=== PATIENT | male | born 1980 | race Caucasian/White ===

== ENCOUNTER 2017-05-31 13:59 | Emergency (ER) | payer OTHER ==
[~2017-05-31] VITALS: Ht 162.6 cm; Wt 58.1 kg
[~2017-05-31 13:59] MED LIST: AMOX1TAB12 PO; BUCALSEP SPRAY30 ML MM; CIPRO500 MG PO; CLARITIN10 MG PO; CORTISPORIN EAR10 M1 OT; DUI500 PO; DURICEF 500 MG PO; FLONASE16 GM NS; FLOVENT DI50 MCG/DIS; MOTRIN800 MG PO; MUPIROCIN22 GM TOP; NASONEX17 GM NS; NO DOZ200 MG; PROVENTIL HFA6.7 GM IH; TESSALON PERLE100 MG PO; TOBREX5 ML OP; ZITHROMAX TRI-500 MG PO; ZOVIRAX400 M1 PO; ZYNCOF 20-400120 ML PO; ZYRTEC10 M3; ZYRTEC10 MG PO; [UNRECOGNIZED DRUG - OTHER] OTIC
== END 2017-05-31 16:15 | disposition home or self-care (01) ==
LOC: ER 13:59
DX: J06.9 Acute upper respiratory infection, unspecified (principal)

== ENCOUNTER → 2017-09-10 | Outpatient (CLI) | payer OTHER | END | disposition home or self-care (01) | LOC: LAB 16:28 | DX: R50.9 Fever, unspecified (principal) ==

== ENCOUNTER → 2017-09-10 | Outpatient (CLI) | payer OTHER | END | disposition home or self-care (01) | LOC: PPHC 15:31 | DX: B34.9 Viral infection, unspecified (principal) ==

== ENCOUNTER 2017-09-25 07:54 | Emergency (ER) | payer OTHER ==
[~2017-09-25] VITALS: Ht 160 cm; Wt 59.0 kg
== END 2017-09-25 09:34 | disposition home or self-care (01) ==
LOC: ER 07:54
DX: M54.5 Low back pain (principal)

== ENCOUNTER → 2017-10-15 | Outpatient (CLI) | payer OTHER | END | disposition home or self-care (01) | LOC: RAD 14:48 | DX: M54.2 Cervicalgia (principal); M54.5 Low back pain ==

== ENCOUNTER 2017-11-09 09:24 | Outpatient (CLI) | payer OTHER | END 2017-11-09 09:44 | disposition home or self-care (01) | LOC: LAB 09:24 | DX: R30.0 Dysuria (principal) ==

== ENCOUNTER 2018-02-21 07:18 | Outpatient (CLI) | payer OTHER | END 2018-02-21 07:22 | disposition home or self-care (01) | LOC: LAB 07:18 | DX: L73.2 Hidradenitis suppurativa (principal); R03.0 Elevated blood-pressure reading, without diagnosis of hypertension ==

== ENCOUNTER 2018-04-25 16:21 | Outpatient (CLI) | payer OTHER | END 2018-04-25 16:26 | disposition home or self-care (01) | LOC: LAB 16:21 | DX: J00 Acute nasopharyngitis [common cold] (principal) ==

== ENCOUNTER → 2018-08-30 06:54 | Outpatient (CLI) | payer OTHER | END | disposition home or self-care (01) | LOC: LAB 06:54 | DX: R42 Dizziness and giddiness (principal); E78.4 Other hyperlipidemia; R10.9 Unspecified abdominal pain; Z00.00 Encounter for general adult medical examination without abnormal findings ==

== ENCOUNTER 2018-08-30 08:10 | Outpatient (CLI) | payer OTHER | END 2018-08-30 08:21 | disposition home or self-care (01) | LOC: SONOGRAMA 08:10 → MAMO-SONO 08:45 | DX: R10.9 Unspecified abdominal pain (principal) ==

== ENCOUNTER 2018-10-14 11:56 | Outpatient (CLI) | payer OTHER | END 2018-10-14 12:03 | disposition home or self-care (01) | LOC: LAB 11:56 | DX: R50.9 Fever, unspecified (principal); A49.3 Mycoplasma infection, unspecified site; J06.9 Acute upper respiratory infection, unspecified ==

== ENCOUNTER → 2019-01-02 11:08 | Outpatient (CLI) | payer OTHER | END | disposition home or self-care (01) | LOC: LAB 11:08 | DX: R74.8 Abnormal levels of other serum enzymes (principal) ==

== ENCOUNTER 2019-04-07 11:13 | Emergency (ER) | payer OTHER ==
[~2019-04-07] VITALS: Ht 160 cm; Wt 59.0 kg
== END 2019-04-07 13:49 | disposition home or self-care (01) ==
LOC: ER 11:13
DX: L02.211 Cutaneous abscess of abdominal wall (principal)

== ENCOUNTER 2019-05-27 11:04 | Emergency (ER) | payer OTHER ==
[~2019-05-27] VITALS: Ht 160 cm; Wt 59.0 kg
[2019-05-27] MEDS ORDERED: CLARITIN10 MG PO (14:00)
== END 2019-05-27 14:19 | disposition home or self-care (01) ==
LOC: ER 11:04
DX: J00 Acute nasopharyngitis [common cold] (principal)

== ENCOUNTER 2019-06-27 08:21 | Outpatient (CLI) | payer OTHER | END 2019-06-27 14:52 | disposition home or self-care (01) | LOC: LAB 08:21 | DX: J11.1 Influenza due to unidentified influenza virus with other respiratory manifestations (principal) ==

== ENCOUNTER 2019-07-09 15:41 | Outpatient (CLI) | payer OTHER | END 2019-07-09 16:33 | disposition home or self-care (01) | LOC: LAB 15:41 | DX: J11.1 Influenza due to unidentified influenza virus with other respiratory manifestations (principal) ==

== ENCOUNTER 2019-09-03 15:00 | Outpatient (CLI) | payer OTHER | END 2019-09-03 15:04 | disposition home or self-care (01) | LOC: LAB 15:00 | DX: R05 Cough (principal); J11.1 Influenza due to unidentified influenza virus with other respiratory manifestations ==

== ENCOUNTER → 2020-02-17 | Outpatient (CLI) | payer OTHER ==
[~2020-02-17] MED LIST changes: +NABUMETONE750 MG PO
== END | disposition home or self-care (01) ==
LOC: PPH VACUNA 07:00
DX: Z23 Encounter for immunization (principal)

== ENCOUNTER 2020-03-30 21:27 | Emergency (ER) | payer OTHER ==
[~2020-03-30] VITALS: Ht 160 cm; Wt 58.1 kg
== END 2020-03-30 23:31 | disposition home or self-care (01) ==
LOC: ER 21:27
DX: L02.31 Cutaneous abscess of buttock (principal)

== ENCOUNTER 2020-06-22 10:40 | Outpatient (CLI) | payer OTHER | END 2020-06-22 10:42 | disposition home or self-care (01) | LOC: LAB 10:40 | DX: R73.01 Impaired fasting glucose (principal); R94.6 Abnormal results of thyroid function studies; N39.0 Urinary tract infection, site not specified; L73.2 Hidradenitis suppurativa; Z72.89 Other problems related to lifestyle ==

== ENCOUNTER 2021-03-01 08:00 | Outpatient (CLI) | payer OTHER ==
[~2021-03-01 08:00] MED LIST changes: +ETODOLAC300 MG PO
== END 2021-03-01 08:30 | disposition home or self-care (01) ==
LOC: PPH VACUNA 08:00
PROVIDERS: ATTEND Emergency Medicine Pediatric Emergency Medicine
DX: Z23 Encounter for immunization (principal)

== ENCOUNTER 2021-07-14 08:00 | Outpatient (CLI) | payer OTHER | END 2021-07-14 08:30 | disposition home or self-care (01) | LOC: PPH VACUNA 08:00 | PROVIDERS: ATTEND Emergency Medicine Pediatric Emergency Medicine | DX: Z23 Encounter for immunization (principal) ==